=== PATIENT | male | born 1935 | race Caucasian/White ===

== ENCOUNTER → 2016-11-22 | Day surgery (SDC) | payer MEDICARE ==
[~2016-11-22] VITALS: Ht 167.6 cm; Wt 90.5 kg
[~2016-11-22] MED LIST: ACET325T51 PO; ALBU8.5H2 INHALATION; ASPI-973 PO; ATOR80TA PO; Acetaminophen IV 1,000 MG in IV Premix 1 EACH IV SCH; BECL8.7A6 INHALATION; Bacitracin Zinc-Polymyxin B 30 Gm Ointment TOPICAL ONE; Bupivacaine Liposome 1.3% 20 mL Inj INFILTRATE SCH; Bupivacaine Liposome 1.3% 20 mL Inj ONE; Bupivacaine-MPF 0.5% 30 mL Inj INFILTRATE ONE; CeFAZolin 2 Gm/50 mL D5W IV Premix IV ONE; DOXA2TAB52 PO; EPHEDrine Sulfate 50 mg/mL Inj IVPUSH PRN; GLPZ5T PO; HYDROmorphone 1 mg/mL Inj IVPUSH PRN; LOSA25TA21 PO; Lactated Ringer's 1,000 ML IV ONE; Lactated Ringer's 1,000 ML IV SCH; Lactated Ringer's 500 ML IV PRN; METF500T4 PO; MONT10TA23 PO; MULT-1018 PO; MetoCLOpramide 5 mg/mL 2 mL Inj IVPUSH PRN; OMEP10CA4 PO; Ondansetron 2 mg/mL 2 mL Inj IVPUSH PRN; Phenylephrine 10,000 mCg/mL Inj IVPUSH PRN; Propofol 10,000 mCg/mL 20 mL Inj ONE; fentaNYL-PF 50 mCg/mL 2 mL Inj IVPUSH PRN; fentaNYL-PF 50 mCg/mL 2 mL Inj ONE; levoFLOXacin Inj 500 MG in IV Premix 1 EACH IV ONE
[2016-11-22 07:08] VITALS: BP 143/67; PULSE 82; RESP 16; O2SAT 95
--- NOTE | 2016-11-22 07:24 | PCM.HPANE ---
Patient Data Surgeon Admitting Provider: Attending Provider:Neeta Navarrete MD Primary Care Physician:Ace Hunt MD Other Provider:Sage Key Anesthesia Reason for Visit Phimosis, Balanitis Ht/WT & BMI Height (Feet): 5 Height (Inches): 6 Weight (Kilograms): 90.5 Body Mass Index 32.00 Allergies Coded Allergies: Penicillins (Verified Allergy, Severe, rash, 11/18/16) Past Anesthesia History Anesthesia History: Denies:: Anesthesia Reactions, Fam Anesthesia Reaction Diabetes History Hx Diabetes?: Yes (last Hgb A1C 6.6- about 4 months ) Type of Diabetes: Type II Glycemic Control: Oral Medication MRSA MRSA: No Medications Hypertension Medication: Yes Home Meds Incl Beta Willian: No Reported Medications Aspirin 81 Mg Qxhbad47 Mg PO DAILY Ref 0 11/22/16 Acetaminophen 325 Mg Fqekhb024 Mg PO Q4H PRN For Fever Ref 0 11/22/16 Multivitamin (Multi Vitamin Daily)1 Each Tablet1 Each PO DAILY 30 Days Ref 0 11/22/16 Atorvastatin (Lipitor)80 Mg Mhjrcf21 Mg PO DAILY Ref 0 11/19/16 Metformin 500 Mg Szfuxx165 Mg PO BID Ref 0 11/19/16 Omeprazole 10 Mg Capsule.dr10 Mg PO HS Ref 0 11/19/16 Beclomethasone Dipropionate (Qvar)8.7 Gm Aer.w.adap1 Puff INHALATION BID #8.7 GM 11/19/16 Albuterol HFA (Proair HFA)8.5 Gm Hfa.aer.ad2 Puffs INHALATION Q4H PRN For Shortness of Breath #1 INHALER 11/19/16 Losartan Potassium 25 Mg Yroadj51 Mg PO DAILY 11/19/16 Glipizide 5 Mg Tablet5 Mg PO BID 30 Days 11/19/16 Doxazosin (Cardura)2 Mg Tablet2 Mg PO HS Ref 0 11/19/16 Montelukast 10 Mg Tsyupi65 Mg PO HS Ref 0 11/18/16 Discontinued Reported Medications glipiZIDE-Expunged Drug, Do Not Renew! 5 Mg Tablet5 Mg PO DAILY 02/23/12 Multivitamin (Daily Value)1 Each Tablet1 Each PO DAILY 02/23/12 Vitamin B Complex (H-Jydrtby-Xxxxwde B-12)1 Each Tablet1 Each PO DAILY 6/13/12 Lisinopril-Expunged Drug, Do Not Renew! 10 Mg Mvkvis81 Mg PO DAILY 02/23/12 Doxazosin-Expunged Drug, Do Not Renew! 4 Mg Tablet4 Mg PO BID 02/23/12 Atorvastatin-Expunged Drug, Do Not Renew! 40 Mg Dupxzs66 Mg PO Every other day 02/23/12 Famotidine-Expunged Drug, Do Not Renew! 20 Mg Pqevqw72 Mg PO BID 02/23/12 Piroxicam-Expunged Drug, Do Not Renew! (Feldene-Expunged Drug, Do Not Renew!)20 Mg Nicwkcx96 Mg PO DAILY 02/23/12 Discontinued Scripts Azithromycin (Zithromax)250 Mg Dukqwv997 Mg PO DAILY #4 TABLET Ref 0 Prov:Jose J Castorena MD 07/11/16 Azithromycin (Zithromax)250 Mg Tablet4 Mg PO DAILY #4 TABLET Ref 0 Prov:Jose J Castorena MD 07/11/16 Prednisone (PredniSONE)20 Mg Zbkxoe56 Mg PO DAILY #10 TABLET Ref 0 Prov:Jose J Castorena MD 07/11/16 Beclomethasone Dipropionate (Qvar)8.7 Gm Aer.w.adap1 Puff INHALATION BID #8.7 GM Ref 2 Prov:Jose J Castorena MD 07/11/16 History History of ENT Problems?: Yes HEENT History: Positive for:: Cataracts (cataract surgery on right, left ) Sinus Problem (allergies, runny nose a lot) Denies:: Hearing Problem (low frequency hearing loss ) Hx of Heart Problems?: Yes Cardiovascular History: Positive for:: Hypertension Denies:: Chest Pain Congestive Heart Failure Heart Murmur Irregular Heartbeat Pacemaker Thrombophlebitis Hx of Respiratory Problem?: Yes Respiratory History: Positive for:: Pneumonia Use of C-PAP Machine (CPAP recommended does not tolerate) Use of Inhalers / NEBS Denies:: Oxygen Administration Tuberculosis Hx Neurologic Problems?: No Neurological History: Denies:: CVA Headaches Multiple Sclerosis Parkinson's Disease Seizures TIA Hx of GI Problems?: Yes Gastrointestinal History: Positive for:: Gastroesphageal Reflux Heartburn Denies:: Gall Bladder Disease Hx of Problems?: No Genitourinary History: Denies:: Kidney Stones Urinary Tract Infection Other Pertinent History: phimosis, balanitis current admission problem Male Hx: Denies:: Prostate Problems Scrotal Mass Testicular Surgery Skin History: Denies:: History Skin Disorders? Pressure Ulcers Hx Musculoskeletal Problems?: Yes Musculoskeletal History: Positive for:: Back Injury (spinal stenosis) Joint Replacement (lt.knee joint replacement) Osteoarthritis Denies:: Fibromyalgia Hx of Psycho/Social Problems?: No Psycho Social History: Denies:: Anxiety Hx Depression Hx Surgeries?: Yes (lt.knee surgery, cataract sry, varicose veins surgery) Hx Any Other Health Problems?: Yes Other History: Positive for:: Hospitalization Denies:: Cancer Endocrine Disease Thyroid Disease History Blood Transfusions: Positive for:: Accept Blood Products? Denies:: Blood Transfusions Hx Diabetes: Yes (last Hgb A1C 6.6- about 4 months ) Hx Alcohol Use: NoHx Substance Use: No Smoking Status: Former Smoker Have You Smoked inLast 12 mo: No Stop/Bang S-Snoring: Do You Snore Loudly: Yes T-Tired: feel tired, fatigued: Yes O-Obsered: Observed not breath: No P-Blood Pressure: treated: Yes B- Body Mass Index > 35 kg/m2: Yes A- Age over 50: Yes N- Neck Large Circumference: No G- Gender Male: Yes STEPHANIE Total Score: 6 Risk Assessment Category Category 1A: Patient has history of documented sleep apnea, and HAS NOT received any narcotic, sedative or anesthesia administration during this stay. Category 1B: Patient has history of documented sleep apnea, and HAS received any narcotic , sedative or anesthesia administration during this stay Category 2: Patient has SUSPECTED Obstructive Sleep Apnea, and HAS received any narcotic , sedative or anesthesia administration during this stay. Category 3: Patient has SUSPECTED Obstructive Sleep Apnea and HAS NOT received narcotic, sedative or anesthesia administration during this stay. Category 4: Outpatient in Procedural Areas with known sleep apnea or who screen positive for High Risk via the STOP/BANG questionnaire. Exam Exam Vital Signs Vital Signs Date Time Temp Pulse Resp B/P Pulse Ox O2 Delivery O2 Flow Rate FiO2 11/22/16 07:08 36 82 16 143/67 95 Room Air General Appearance: Alert, Oriented X3, Cooperative, No Acute Distress HEENT/AIRWAY: MP 2, Neck Movement (some limited extension) Lungs: Diminished Heart: Regular Rate/Rhythm Meds/Labs/Diagnostics Admission Meds Current Medications Lactated Ringer's (Lr) 1,000 ml @ 120 mls/hr Q8H20M ONCE IV Last administered on 11/22/16t 06:50; Start 11/22/16 at 05:00; Stop 11/22/16 at 13:19 Plan Impression Patient chart reviewed, patient interviewed and anesthestic plan with risks, benefits, and alternatives discussed, and informed consent obtained. ASA Physical Status: ASA3 Severe Disease Anesthetic Plan: MAC Bene/Risks/Altern/Consents: Yes HP Complete Prior to Induction: Yes Kelly Steele DO Nov 22, 2016 07:24
[2016-11-22 07:31] VITALS: BP 143/67; PULSE 82; RESP 16; O2SAT 95
[2016-11-22 09:31] VITALS: BP 118/62; PULSE 76; RESP 18; O2SAT 96
--- NOTE | 2016-11-22 09:58 | PCM.ANEP1 ---
Post Anesthesia Phase 1 PACU Phase 1 Assessment Vital Signs Vital Signs Date Time Temp Pulse Resp B/P Pulse Ox O2 Delivery O2 Flow Rate FiO2 11/22/16 09:31 36.8 76 18 118/62 96 Room Air 11/22/16 07:31 36 82 16 143/67 95 Room Air 11/22/16 07:08 36 82 16 143/67 95 Room Air Anesthetic Administered: MAC Level of Alertness: Awake, talking THOMAS's with Equal Strength: Yes Pain: No Nausea or Vomiting: No Oxygen Delivery: Room Air Lungs: Diminished Kelly Steele DO Nov 22, 2016 09:58
--- NOTE | 2016-11-22 09:59 | PCM.ANEP2 ---
Post Anesthesia Evaluation ASA/CMS Post Anesthesia VS in Patient's Normal Range?: Yes Resp Stable; Airway Patent?: Yes CV Function & Hydration Stable: Yes Mental Status Recovered?: Yes Pain control Satisfactory?: Yes N/V Control Satisfactory?: Yes Kelly Steele DO Nov 22, 2016 09:58
[2016-11-22 10:00] VITALS: BP 118/62; PULSE 71; RESP 18; O2SAT 95
--- NOTE | 2016-11-23 05:44 | OP ---
[address] [address] OPERATIVE REPORT PATIENT: SKYLER RIVER : 1935 MR#: [id number] ADMIT: 11/22/2016 JOB ID: [id number] DATE OF SURGERY: 11/22/2016 PREOPERATIVE DIAGNOSIS(ES): 1. Severe, chronic and recurrent balanitis. 2. Phimosis. 3. Glans preputial adhesions. POSTOPERATIVE DIAGNOSIS(ES): 1. Severe, chronic and recurrent balanitis. 2. Phimosis. 3. Glans preputial adhesions. OPERATION PERFORMED: Adult circumcision. SURGEON: Neeta Navarrete MD. ANESTHESIOLOGIST: Kelly Steele DO. ANESTHESIA: General plus 0.5% plain Marcaine, MAC. FINDINGS: Severe chronic active inflammation, narrowing of the prepuce. There are circumferential glans and preputial adhesions mainly along the garrett. Meatus is orthotopic and patent. Remainder of glans unremarkable. PROCEDURE SUMMARY: The patient was positioned in supine and was administered intravenous sedation. The lower abdomen and genitalia were then prepped and draped in sterile fashion. Local anesthetic was then used to infiltrate the midline dorsal prepuce. The anopreputial space was cleansed with copious Betadine solution. A straight hemostatic clamp was used to inflict prompt hemostasis in the dorsal midline of the prepuce. It was then divided sharply. Hemostasis was obtained with a cautery pen. A running vertical mattress of 4-0 chromic was then performed. Hemostasis was excellent. Antibiotic ointment was applied to the incision line of the glans and it was dressed with dry sterile fluffs and knit underwear. The patient was then transferred to a [place] and transferred to recovery room in stable condition.
== END | disposition home or self-care (01) ==
LOC: SAS 06:49
PROVIDERS: ATTEND Specialist
DX: N47.1 Phimosis (principal); N48.1 Balanitis; N47.5 Adhesions of prepuce and glans penis; E11.9 Type 2 diabetes mellitus without complications; Z79.84 Long term (current) use of oral hypoglycemic drugs; I10 Essential (primary) hypertension
CPT/HCPCS: 54161; J0131; J1200; J3010; J7120